=== PATIENT | male | born 1995 | race Caucasian/White ===

== ENCOUNTER → 2017-07-28 08:01 | Outpatient (CLI) | payer OTHER, MEDICAID, SELFPAY | PROVIDERS: Family Provider Internal Medicine; PCP Internal Medicine; Visit Provider Internal Medicine | DX: I95.9 Hypotension, unspecified (principal) | CPT/HCPCS: 36415; 82533 ==

== ENCOUNTER 2017-08-10 08:30 | Outpatient (RCR) | payer OTHER, MEDICAID, SELFPAY | END 2017-08-10 08:31 | LOC: NS 08:30 | PROVIDERS: Family Provider Internal Medicine; PCP Internal Medicine; Visit Provider Internal Medicine | DX: E46 Unspecified protein-calorie malnutrition (principal); Z71.3 Dietary counseling and surveillance | CPT/HCPCS: 97802 ==

== ENCOUNTER → 2018-01-01 13:00 | Outpatient (CLI) | payer OTHER, MEDICAID, SELFPAY ==
--- NOTE | 2018-01-01 13:08 | ECHOD_ITS ---
Reason For Study: VSD Procedure This was a 2D Doppler, Color Flow transthoracic echocardiogram. Exam performed in department. Left Ventricle Normal LV size. Left ventricular systolic function is normal. The estimated ejection fraction is 55 %. No evidence for diastolic dysfunction. No regional wall motion abnormalities noted. Right Ventricle Normal RV size. Normal systolic function. Atria Normal left atrium. Normal right atrium. Mitral Valve Normal mitral valve. Tricuspid Valve Normal tricuspid valve. Mild tricuspid valve insufficiency. Aortic Valve The aortic valve is not well visualized. Pulmonic Valve The pulmonic valve is not well visualized. Great Vessels Normal aortic root. The pulmonary artery is normal size. Pericardium/Pleural No pericardial effusion. MMode/2D Measurements & Calculations LVIDd: 3.7 cm IVSd: 0.79 cm Ao root diam: 2.6 cm LVIDs: 2.5 cm LVPWd: 0.87 cm FS: 32.1 % LAV(MOD-bp): 11.5 ml LA A4 area: 7.2 cm2 LAV(MOD-bp) Indexed: 7.2 ml/m2 LAV(MOD-sp2): 11.2 ml LAV(MOD-sp4): 11.8 ml Doppler Measurements & Calculations MV E max troy: 108.9 cm/sec Lat Peak E' Troy: 13.4 cm/sec Med Peak E' Troy: 7.0 cm/sec MV A max troy: 71.2 cm/sec E/E' lat: 8.2 E/E' med: 15.6 MV E/A: 1.5 Ao V2 max: 92.7 cm/sec LV V1 max: 80.0 cm/sec PA V2 max: 104.8 cm/sec Ao max P.4 mmHg LV V1 max P.6 mmHg TR max troy: 215.7 cm/sec TR max P.6 mmHg Interpretation Summary Normal LV size. Left ventricular systolic function is normal. The estimated ejection fraction is 55 %. No evidence for diastolic dysfunction. Mild tricuspid valve insufficiency. Ordering Physician: Kevon Fuentes Referring Physician: Augustina Burns MD Performed By: Keily Wagner, ALEJO, RVT
== END ==
PROVIDERS: Family Provider Internal Medicine; PCP Internal Medicine; Visit Provider Internal Medicine Cardiovascular Disease
DX: Z87.74 Personal history of (corrected) congenital malformations of heart and circulatory system (principal)
CPT/HCPCS: 93306

== ENCOUNTER 2018-04-23 09:01 | Outpatient (CLI) | payer OTHER, MEDICAID, SELFPAY ==
[2018-04-23] VITALS (9 sets, daily range): BP systolic 75–124; BP diastolic 32–93; PULSE 50–85; RESP 17–20; TEMP 36.1–36.8; O2SAT 78–100; BMI 24.8
--- NOTE | 2018-04-23 09:24 | CT_ITS ---
STUDY: CT ABDOMEN AND PELVIS WITH CONTRAST REASON FOR EXAM: Male, 23 years old. Mid abdominal pain. The patient is nonverbal. History of Hodgkin's lymphoma and prior chemotherapy. RADIATION DOSAGE (If Supplied By Facility): CTDIvol = ( 12.51 ) mGy, DLP = ( 830.93 ) mGycm TECHNIQUE: Transaxial images were obtained from the dome of the diaphragm to the symphysis pubis with oral contrast. 75mL ml of Isovue 300 contrast was administered. Sagittal and coronal images were reconstructed. Delayed imaging was obtained as well. Individualized dose optimization techniques were used for this CT. COMPARISON: None. FINDINGS: The visualized lung bases are unremarkable. The visualized portions of the heart are within normal limits. Normal liver. Normal gallbladder and extrahepatic biliary system. Normal spleen. Normal pancreas. Normal bilateral adrenal glands. Normal right kidney. Normal left kidney. Normal visualized stomach. Normal small intestine. Moderate amount of fecal material is seen in the colon. The appendix is visualized and appears normal. Normal abdominal aorta. Normal inferior vena cava. Normal retroperitoneum. Diffuse bladder wall thickening. Small benign-appearing bilateral inguinal lymph nodes. Normal abdominal wall. Normal osseous structures. CT/Abdomen/Pelvis WITH Contrast IMPRESSION: Diffuse bilateral wall thickening. Electronically Signed: Lawrence Ferro MD at 14:54 EDT Tel [phone], Service support ,
[2018-04-23 10:11] LABS: Creatinine, Serum 1.44 mg/dL (0.70-1.30); EST Glomerular Filtration Rate 64 mL/min (>60); Est Glom Filt Rate - Afr Amer 77 mL/min (>60); Estimated Creatinine Clearance 61.09 ml/min
--- NOTE | 2018-04-23 11:12 | NURSING ---
Addendum entered by Lory Stanford 04/23/18 11:12: PT TRANSPORTED TO PACU BY DR Jackson. MOTHER AND THIS RN FOLLOWING. BEDSIDE REPORT GIVEN TO GIANFRANCO SAENZ RN. DENIES ADDITIONAL NEEDS. Original Note: [id number]
== END 2018-04-23 11:47 | disposition home or self-care (01) ==
PROVIDERS: Anesthesiology; Family Provider Internal Medicine; PCP Internal Medicine; Referring Provider Internal Medicine Gastroenterology; Visit Provider Internal Medicine Gastroenterology
PROC: 3E0T3BZ Introduction of Anesthetic Agent into Peripheral Nerves and Plexi, Percutaneous Approach (ICD-10-PCS; principal; 2018-04-23 09:30)
DX: Z01.812 Encounter for preprocedural laboratory examination (principal); R10.9 Unspecified abdominal pain
CPT/HCPCS: 01922; 74177; 82565; J7120; Q9967; A4216

== ENCOUNTER 2021-01-20 18:47 | Emergency (ER) | payer MEDICAID, SELFPAY ==
[2019-12-22 16:12] VITALS: BMI 24.8
[2021-01-20 18:49] VITALS: BP 128/87; PULSE 79; RESP 14; TEMP 37.2; O2SAT 95; BMI 24.3
--- NOTE | 2021-01-20 19:17 | EDS_ITS ---
HPI History of Present Illness Chief Complaint: Foreign Body Informant: mental health staff Narrative Narrative: Patient is in a penit[facility]iary. He evidently is not supposed to eat roast. He was eating roast. He choked on it. He was having some trouble breathing. However, when he got here he was able to cough up that piece of roast. He is now back to baseline. He feels and is acting normally per his care provider. He was fine before this. He is back to normal now. Coughing up made it better. [facility] Medical History (Updated 01/20/21 @ 20:[address] 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 Right bundle branch block (RBBB) Seasonal allergies Syncope and collapse Syncope due to orthostatic hypotension Trisomy 21 Ventricular septal defect Vision problems Home Medications levothyroxine 88 mcg PO DAILY 04/03/13 [History Last Taken Unknown] polyethylene glycol 3350 17 gm PO DAILY 04/03/13 [History Last Taken Unknown] testosterone 2.5 gm TD DAILY 04/03/13 [History Last Taken Unknown] calcium polycarbophil 2 tab PO DAILY 11/25/16 [History Last Taken Unknown] cholecalciferol (vitamin D3) 1,000 unit PO DAILY 11/25/16 [History Last Taken Unknown] melatonin 5 mg PO QHS 11/25/16 [History Last Taken Unknown] mirtazapine 45 mg PO QHS 11/25/16 [History Last Taken Unknown] pediatric vqhlnpsh-pngw-ydk 1 ea PO DAILY 11/25/16 [History Last Taken Unknown] omeprazole 20 mg PO DAILY #30 cap 02/14/17 [Rx Last Taken Unknown] calcium carbonate 500 mg calcium (1,250 mg) chewable tablet 500 mg PO BID tab 07/27/17 [History Last Taken Unknown] ceramides 1,3,6-II 1 ea TOPICAL DAILY 07/27/17 [History Last Taken Unknown] cetirizine 10 mg tablet 10 mg PO QDAY 07/27/17 [History Last Taken Unknown] fluocinolone 0.01 % scalp oil and shower cap 1 % TOPICAL MOWEFR 07/27/17 [History Last Taken Unknown] guaifenesin 400 mg tablet 400 mg PO Q4H PRN 07/27/17 [History Last Taken Unknown] sodium chloride 0.65 % nasal spray aerosol 2 spray INTRANASAL BID ml 07/27/17 [History Last Taken Unknown] Lactobacillus rhamnosus GG 10 billion cell capsule 1 cap PO BID #60 cap 01/05/18 [Rx Last Taken Unknown] risperidone 0.5 mg tablet 0.5 mg PO BID tab 01/25/18 [History Last Taken Unknown] risperidone 1 mg tablet 1 mg PO QHS tab 01/25/18 [History Last Taken Unknown] fluticasone propionate 50 mcg/actuation nasal spray,suspension 1 spray INTRANASAL DAILY #47.4 g 03/12/18 [Rx Last Taken Unknown] azelaic acid 20 % topical cream 1 applic TOPICAL BID #30 g 04/21/18 [Rx Last Taken Unknown] cephalexin 500 mg capsule 500 mg PO TID #30 cap 12/22/19 [Rx Last Taken Unknown] Allergy/AdvReac Type Severity Reaction Status Date / Time gluten AdvReac Upset Verified 12/22/19 16:10 Stomach Family History Mother Anxiety Thyroid disorder Uncle Anxiety Grandmother Depression High cholesterol Sister Epilepsy Grandfather Thyroid disorder Surgical History H/O ventricular septal defect repair History of sinus surgery History of tonsillectomy and adenoidectomy lymphctomy/bone marrow aspiration Social History (Updated 12/22/19 @ 16:45 by Ori BAXTER, PA) Smoking Status: Never smoker alcohol intake: never substance use type: does not use what type of physical activity do you participate in: none ROS ROS ED ROS Narrative Review of systems is limited because of the patient's chronic mental condition. But per staff, he it was totally normal prior to this. Review of Systems ROS Unobtainable: due to mental condition EXAM Physical Exam Const Vital Signs: 01/20/21 18:49 Temperature 99 F Temperature Source Temporal Pulse Rate 79 Respiratory Rate 14 Blood Pressure 128/87 H Blood Pressure Mean 100 Pulse Ox 95 Oxygen Delivery Method Room Air Positive well nourished and well developed General Appearance ED: well developed and NAD HEENT HEENT Narrative: Breathing normally. No foreign body at this time. He did bring up a piece. Negative for trauma or tenderness Neck no lymphadenopathy and supple Chest Wall Negative for inspection of chest normal Resp normal respiratory effort and clear to auscultation bilaterally Cardio regular rate GI normal to inspection, nondistended, normoactive bowel sounds Palpation: soft Back/Spine no CVA tenderness Neuro Sensorium / Orientation: alert Psych mental status grossly normal Skin no rashes or lesions noted MDM MDM MDM Narrative Medical decision making narrative: X-ray shows no acute process. Patient is rechecked. He is asymptomatic. His saturations are 97%. I think he is okay to go back to his penitentiary. Radiography Diagnostic Testing: Radiology Impression Chest X-Ray 01/20/21 19:30 IMPRESSION: No radiographic evidence of acute cardiopulmonary disease. at 2013 Reported and signed by: Scott Stephens MD Electronically Signed: Scott Stephens MD at 20:12 EDT Tel , Service support , Discharge Plan Triage Chief Complaint: Foreign Body ED Provider: Juan Odell Dx/Rx/DC Orders Clinical Impression: Choking episode Instructions: ED Choking Spell (Adult) Prescriptions: No Action cetirizine [All Day Allergy (cetirizine)] 10 mg tablet 10 mg PO QDAY RF: 0 fluocinolone and shower cap 0.01 % oil 1 % TOPICAL MOWEFR RF: 0 sodium chloride 0.65 % aerosol,spray 2 spray INTRANASAL BID RF: 0 ceramides 1,3,6-II [CeraVe] lotion 1 ea TOPICAL DAILY RF: 0 guaifenesin 400 mg tablet 400 mg PO Q4H PRN (Reason: Cough) RF: 0 calcium carbonate 500 mg calcium (1,250 mg) tablet,chewable 500 mg PO BID RF: 0 cephalexin 500 mg capsule 500 mg PO TID Qty: 30 RF: 0 polyethylene glycol 3350 17 GM packet 17 gm PO DAILY RF: 0 levothyroxine 88 MCG tablet 88 mcg PO DAILY RF: 0 testosterone 2.5 GM gel in packet 2.5 gm TD DAILY RF: 0 risperidone 0.5 mg tablet 0.5 mg PO BID RF: 0 risperidone 1 mg tablet 1 mg PO QHS RF: 0 pediatric pnqqbyja-fulo-bek 1 EACH tablet,chewable 1 ea PO DAILY RF: 0 calcium polycarbophil 625 MG tablet 2 tab PO DAILY RF: 0 mirtazapine 45 MG tablet 45 mg PO QHS RF: 0 cholecalciferol (vitamin D3) 1,000 UNIT capsule 1,000 unit PO DAILY RF: 0 melatonin 5 MG tablet 5 mg PO QHS RF: 0 omeprazole 20 MG capsule 20 mg PO DAILY Qty: 30 RF: 0 Lactobacillus rhamnosus GG [Culturelle] 10 billion cell capsule 1 cap PO BID Qty: 60 RF: 2 fluticasone propionate 50 mcg/actuation spray,suspension 1 spray INTRANASAL DAILY Qty: 47.4 RF: 1 Azelex 20 % cream 1 applic TOPICAL BID Qty: 30 RF: 0 Primary Care Provider: Honey Molina Referrals: Honey Molina MD [Primary Care Provider] - 3-5 Days if not improving Disposition Disposition: Home, Self Care
--- NOTE | 2021-01-20 19:30 | RAD_ITS ---
EXAM: XR CHEST, 1 VIEW : 1995 CLINICAL INDICATION: cough TECHNIQUE: Frontal view of the chest. This report was created using [employer] report generation technology. COMPARISON: 04/06/2017 FINDINGS: LUNGS AND PLEURAL SPACES: Unremarkable. No consolidation or edema. No pneumothorax. No effusion. HEART: Unremarkable. Cardiac silhouette not enlarged. MEDIASTINUM: Central airways and mediastinal contour are unremarkable. BONES/JOINTS: Unremarkable. SOFT TISSUES: Unremarkable. RAD/Chest 1 View (Portable) IMPRESSION: No radiographic evidence of acute cardiopulmonary disease. at 2013 Reported and signed by: Scott Stephens MD Electronically Signed: Scott Stephens MD at 20:12 EDT Tel , Service support ,
[2021-01-20 20:40] VITALS: BP 109/75; PULSE 70; RESP 17; O2SAT 95
== END 2021-01-20 20:41 | disposition home or self-care (01) ==
PROVIDERS: Emergency Provider Emergency Medicine; PCP Internal Medicine
DX: T17.928A Food in respiratory tract, part unspecified causing other injury, initial encounter (principal); Q90.9 Down syndrome, unspecified; K21.9 Gastro-esophageal reflux disease without esophagitis; E03.9 Hypothyroidism, unspecified; Z79.899 Other long term (current) drug therapy
CPT/HCPCS: 71045; 99282

== ENCOUNTER 2021-06-25 10:21 | Emergency (ER) | payer MEDICAID, SELFPAY ==
[2021-06-25 10:22] VITALS: BP 125/66; PULSE 82; RESP 17; TEMP 37.2; O2SAT 95; BMI 25.7
[2021-06-25 10:26] VITALS: BP 125/66; PULSE 82; RESP 17; TEMP 37.2; O2SAT 95
[2021-06-25 11:34] VITALS: BP 125/66; PULSE 82; RESP 17; TEMP 37.2; O2SAT 95
--- NOTE | 2021-06-25 11:39 | CT_ITS ---
STUDY: CTA CHEST REASON FOR EXAM: Male, 26 years old. covid 19 pulmonary embolism RADIATION DOSAGE (If Supplied By Facility): CTDIvol = ( 4.34 ) mGy, DLP = ( 244.74 ) mGycm TECHNIQUE: The examination was performed with the intravenous administration of IV 100mL Isovue-370. Post-processing of the angiographic images was performed, with multiplanar reformation and 3D reconstruction. Individualized dose optimization techniques were used for this CT. COMPARISON: None. FINDINGS: Normal enhancement of the main pulmonary artery and right and left pulmonary arteries. Normal enhancement of the bilateral peripheral pulmonary arteries. There is no demonstrated pulmonary embolism. Normal thoracic aorta and visualized great vessels. There is no demonstrated aortic dissection. Normal heart and pericardium. Normal mediastinum. Normal hilar regions. Normal visualized trachea and bronchi. The lungs are under expanded. Mild mosaic attenuation in the dependent portions of bilateral lower lobes. No dense airspace consolidation. Normal pleura. Normal chest wall structures. Normal osseous structures. Normal visualized upper abdomen. CT/CTA Chest W/WO Contrast IMPRESSION: 1. No central or segmental pulmonary embolism. 2. Bilateral lower lobe air trapping versus pneumonitis. Electronically Signed: Natan Rodriguez MD ([place]) at 13:00 EST , Service support ,
--- NOTE | 2021-06-25 11:44 | EDS_ITS ---
HPI History of Present Illness Chief Complaint: Fever Informant: parent Narrative Narrative: 26-year-old male with a history of Down's syndrome presenting to the emergency department with COVID-19 and fever. Patient was tested yesterday and developed symptoms yesterday. He has had continued fever. He ate normally today. There is concerns that his pulse ox was low this morning. Patient is not Covid vaccinated. No reports of diarrhea. Cough has been mild PFSH PFSH Medical History (Updated 06/25/21 @ 11:[address] 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 Right bundle branch block (RBBB) Seasonal allergies Syncope and collapse Syncope due to orthostatic hypotension Trisomy 21 Ventricular septal defect Vision problems Home Medications levothyroxine 88 mcg PO DAILY 04/03/13 [History Last Taken Unknown] polyethylene glycol 3350 17 gm PO DAILY 04/03/13 [History Last Taken Unknown] testosterone 2.5 gm TD DAILY 04/03/13 [History Last Taken Unknown] calcium polycarbophil 2 tab PO DAILY 11/25/16 [History Last Taken Unknown] cholecalciferol (vitamin D3) 1,000 unit PO DAILY 11/25/16 [History Last Taken Unknown] melatonin 5 mg PO QHS 11/25/16 [History Last Taken Unknown] mirtazapine 45 mg PO QHS 11/25/16 [History Last Taken Unknown] pediatric ghaqhcxj-yuuo-osr 1 ea PO DAILY 11/25/16 [History Last Taken Unknown] omeprazole 20 mg PO DAILY #30 cap 02/14/17 [Rx Last Taken Unknown] calcium carbonate 500 mg calcium (1,250 mg) chewable tablet 500 mg PO BID tab 07/27/17 [History Last Taken Unknown] ceramides 1,3,6-II 1 ea TOPICAL DAILY 07/27/17 [History Last Taken Unknown] cetirizine 10 mg tablet 10 mg PO QDAY 07/27/17 [History Last Taken Unknown] fluocinolone 0.01 % scalp oil and shower cap 1 % TOPICAL MOWEFR 07/27/17 [History Last Taken Unknown] guaifenesin 400 mg tablet 400 mg PO Q4H PRN 07/27/17 [History Last Taken Unknown] sodium chloride 0.65 % nasal spray aerosol 2 spray INTRANASAL BID ml 07/27/17 [History Last Taken Unknown] Lactobacillus rhamnosus GG 10 billion cell capsule 1 cap PO BID #60 cap 01/05/18 [Rx Last Taken Unknown] risperidone 0.5 mg tablet 0.5 mg PO BID tab 01/25/18 [History Last Taken Unknown] risperidone 1 mg tablet 1 mg PO QHS tab 01/25/18 [History Last Taken Unknown] fluticasone propionate 50 mcg/actuation nasal spray,suspension 1 spray INTRANASAL DAILY #47.4 g 03/12/18 [Rx Last Taken Unknown] azelaic acid 20 % topical cream 1 applic TOPICAL BID #30 g 04/21/18 [Rx Last Taken Unknown] cephalexin 500 mg capsule 500 mg PO TID #30 cap 12/22/19 [Rx Last Taken Unknown] ondansetron 4 mg PO Q6H PRN PRN #15 tab 06/25/21 [Rx Last Taken Unknown] sulfacetamide sodium 2 drp EACH EYE Q4H 7 Days #15 ml 06/25/21 [Rx Last Taken Unknown] Allergy/AdvReac Type Severity Reaction Status Date / Time gluten AdvReac Upset Verified 06/25/21 10:28 Stomach Family History Mother Anxiety Thyroid disorder Uncle Anxiety Grandmother Depression High cholesterol Sister Epilepsy Grandfather Thyroid disorder Surgical History H/O ventricular septal defect repair History of sinus surgery History of tonsillectomy and adenoidectomy lymphctomy/bone marrow aspiration Social History Smoking Status: Never smoker alcohol intake: never substance use type: does not use what type of physical activity do you participate in: none ROS ROS ED Review of Systems ROS Unobtainable: due to mental status Constitutional Constitutional ED: Reports fever(s) Eyes Eyes: Reports other Details: Bilateral conjunctival exudate and injection Respiratory/Chest Respiratory/Chest: Reports cough EXAM Physical Exam Const Vital Signs: 06/25/21 10:22 06/25/21 10:26 06/25/21 11:34 Temperature 98.9 F 98.9 F 98.9 F Temperature Source Oral Oral Oral Pulse Rate 82 82 82 Respiratory Rate 17 17 17 Blood Pressure 125/66 H 125/66 H 125/66 H Blood Pressure Mean 85 85 85 Pulse Ox 95 95 95 Oxygen Delivery Method Room Air Room Air Room Air 06/25/21 13:31 Temperature Temperature Source Pulse Rate 62 Respiratory Rate 16 Blood Pressure 114/70 Blood Pressure Mean 84 Pulse Ox 97 Oxygen Delivery Method Room Air Positive well nourished and well developed General Appearance ED: well developed HEENT Reports normocephalic, head/scalp atraumatic and dry mucous membranes Mouth ED: Yes dry mucous membranes Mouth: dry mucous membranes Eyes PERRL and EOMs intact bilaterally Eyes Narrative: Bilateral conjunctival injection with exudates Neck no lymphadenopathy, supple and no JVD Resp normal respiratory effort and clear to auscultation bilaterally Cardio regular rate, regular rhythm and no murmurs GI normal to inspection, nondistended, normoactive bowel sounds and non-tender Palpation: soft Back/Spine no CVA tenderness and normal ROM Extremity normal to inspection General Extremety ED: Negative for edema General Extremity: Negative for edema Neuro CN's II-XII intact bilaterally Sensorium / Orientation: alert Motor Exam: strength 5/5 throughout Psych mental status grossly normal Mood & Affect: Negative for depressed or tearful MDM MDM MDM Narrative Medical decision making narrative: Patient received Tylenol and IV fluids. Sulfacetamide drops were placed for the eye. Basic blood work showed a mild leukopenia at 4 with a platelet count of 116. Lactic acid is normal 1.5 creatinine 1.44. CTA of the chest was obtained which does not demonstrate any pulmonary embolism. At this point the patient is not requiring supplemental oxygen. Mom is not sure if she wants him to have monoclonal antibody treatment. Lab Data Labs: Laboratory Results - last 24 hr 06/25/21 06/25/21 06/25/21 12:00 12:00 12:00 WBC 4.0 L RBC 4.42 L Hgb 14.8 Hct 43.4 MCV 98.2 H MCH 33.5 H MCHC 34.1 RDW Std Deviation 49.7 H RDW Coeff of Reyes 13.5 Plt Count 116 L MPV 10.0 Immature Gran % (Auto) 0.500 Neut % (Auto) 41.8 L Lymph % (Auto) 36.1 [place] % (Auto) 21.1 H Eos % (Auto) 0.0 Baso % (Auto) 0.5 Absolute Neuts (auto) 1.7 L Absolute Lymphs (auto) 1.45 Nucleated RBC % 0 Sodium 144 Potassium 3.9 Chloride 105 Carbon Dioxide 32.0 Anion Gap 7 BUN 14 Creatinine 1.44 H Estim Creat Clear Calc 59.51 Est GFR (MDRD) Af Amer 76 Est GFR (MDRD) Non-Af 62 BUN/Creatinine Ratio 9.7 L Glucose 99 Lactic Acid 1.5 Calcium 9.0 Total Bilirubin 0.30 AST 48 H ALT 59 Alkaline Phosphatase 79 Total Protein 6.8 Albumin 3.0 L Globulin 3.8 Albumin/Globulin Ratio 0.8 L Radiography Diagnostic Testing: Clinical Impression(s) from Imaging Studies Chest CTA 06/25/21 11:39 IMPRESSION: 1. No central or segmental pulmonary embolism. 2. Bilateral lower lobe air trapping versus pneumonitis. Electronically Signed: Natan Rodriguez MD ([place]) at 13:00 EST , Service support , Discharge Plan Triage Chief Complaint: Fever ED Provider: Elijah Bello Dx/Rx/DC Orders Clinical Impression: COVID-19, Conjunctivitis Instructions: Coronavirus Disease 2019 (COVID-19): Caring for Yourself or Others, ED Conjunctivitis, Nonspecific Prescriptions: New sulfacetamide sodium 10 % drops 2 drp EACH EYE Q4H 7 Days Qty: 15 RF: 0 ondansetron [ondansetron] 4 MG tablet 4 mg PO Q6H PRN PRN (Reason: Nausea) Qty: 15 RF: 0 No Action cetirizine [All Day Allergy (cetirizine)] 10 mg tablet 10 mg PO QDAY RF: 0 fluocinolone and shower cap 0.01 % oil 1 % TOPICAL MOWEFR RF: 0 sodium chloride 0.65 % aerosol,spray 2 spray INTRANASAL BID RF: 0 ceramides 1,3,6-II [CeraVe] lotion 1 ea TOPICAL DAILY RF: 0 guaifenesin 400 mg tablet 400 mg PO Q4H PRN (Reason: Cough) RF: 0 calcium carbonate 500 mg calcium (1,250 mg) tablet,chewable 500 mg PO BID RF: 0 cephalexin 500 mg capsule 500 mg PO TID Qty: 30 RF: 0 polyethylene glycol 3350 17 GM packet 17 gm PO DAILY RF: 0 levothyroxine 88 MCG tablet 88 mcg PO DAILY RF: 0 testosterone 2.5 GM gel in packet 2.5 gm TD DAILY RF: 0 risperidone 0.5 mg tablet 0.5 mg PO BID RF: 0 risperidone 1 mg tablet 1 mg PO QHS RF: 0 pediatric nrugnweh-itmb-dlr 1 EACH tablet,chewable 1 ea PO DAILY RF: 0 calcium polycarbophil 625 MG tablet 2 tab PO DAILY RF: 0 mirtazapine 45 MG tablet 45 mg PO QHS RF: 0 cholecalciferol (vitamin D3) 1,000 UNIT capsule 1,000 unit PO DAILY RF: 0 melatonin 5 MG tablet 5 mg PO QHS RF: 0 omeprazole 20 MG capsule 20 mg PO DAILY Qty: 30 RF: 0 Lactobacillus rhamnosus GG [Culturelle] 10 billion cell capsule 1 cap PO BID Qty: 60 RF: 2 fluticasone propionate 50 mcg/actuation spray,suspension 1 spray INTRANASAL DAILY Qty: 47.4 RF: 1 Azelex 20 % cream 1 applic TOPICAL BID Qty: 30 RF: 0 Primary Care Provider: Honey Molina Referrals: Honey Molina MD [Primary Care Provider] - As Needed Disposition Disposition: Home, Self Care
[2021-06-25] MEDS: Acetaminophen 500 MG Tablet 1000 MG PO (12:16)
[2021-06-25 12:26] LABS: Absolute Lymphocyte Count 1.45 X10^3/uL (0.83-4.51); Absolute Neutrophil Count 1.7 X10^3/uL (2.0-7.7); Basophil# 0.02 X10^3/uL; Basophil% 0.5 % (0-1); Hematocrit 43.4 % (40-54); Hemoglobin 14.8 g/dL (13.0-16.5); Lymphocyte # 1.45 X10^3/ul (0.83-4.51); Lymphocyte % 36.1 % (19-41); Mean Corp Hgb Conc 34.1 g/dL (32-36); Mean Corpuscular Hgb 33.5 pg (27.0-32.0); Mean Corpuscular Volume 98.2 fL (80-94); Monocyte# 0.85 X10^3/uL; Monocyte% 21.1 % (0-10); NRBC Flagged by Analyzer 0 % (0-5); Neutrophil # 1.68 X10^3/uL (2.7-7.7); Neutrophil % 41.8 % (47-70); Platelet Count 116 K/mm3 (150-450); RBC Distribution Width CV 13.5 % (11.6-14.6); RBC Distribution Width SD 49.7 fl (35.1-43.9); Red Blood Count 4.42 M/mm3 (4.6-6.2)
[2021-06-25 12:28] LABS: ALB/GLOB Ratio 0.8 RATIO (0.9-2.4); AST(SGOT) 48 U/L (15-37); Alanine Aminotransfer ALT/SGPT 59 U/L (16-61); Alkaline Phosphatase 79 U/L (45-117); Anion Gap 7 (5-15); BUN 14 mg/dL (7-18); BUN/Creat Ratio 9.7 RATIO (10-20); Chloride 105 mmol/L (98-107); Creatinine, Serum 1.44 mg/dL (0.70-1.30); EST Glomerular Filtration Rate 62 mL/min (>60); Est Glom Filt Rate - Afr Amer 76 mL/min (>60); Estimated Creatinine Clearance 59.51 ml/min; Globulin 3.8 g/dL (2.2-4.2); Glucose 99 mg/dL (74-106); Potassium 3.9 mmol/L (3.5-5.1); Protein, Total 6.8 g/dL (6.4-8.2); Sodium Level 144 mmol/L (136-145)
[2021-06-25 12:32] LABS: Lactic Acid 1.5 mmol/L (0.4-1.9)
[2021-06-25] MEDS: Sulfacetamide Sodium 15ML OPTH.BTL 2 DRP OPHTHALMIC (12:41)
[2021-06-25 13:31] VITALS: BP 114/70; PULSE 62; RESP 16; O2SAT 97
[2021-06-25 14:59] VITALS: BP 110/74; PULSE 87; RESP 16; O2SAT 99
== END 2021-06-25 15:11 | disposition home or self-care (01) ==
PROVIDERS: Emergency Provider Emergency Medicine; PCP Internal Medicine
DX: U07.1 COVID-19 (principal); H10.9 Unspecified conjunctivitis; Q90.9 Down syndrome, unspecified; E03.9 Hypothyroidism, unspecified; K21.9 Gastro-esophageal reflux disease without esophagitis; Z79.890 Hormone replacement therapy; Z79.899 Other long term (current) drug therapy; Z87.74 Personal history of (corrected) congenital malformations of heart and circulatory system
CPT/HCPCS: 71275; 80053; 83605; 85025; 96360; 96361; 99285; J7030; Q9967

== ENCOUNTER 2022-03-01 11:57 | Emergency (ER) | payer MEDICAID, SELFPAY ==
[2022-03-01 11:58] VITALS: BP 116/71; PULSE 89; RESP 16; TEMP 36.2; O2SAT 100; BMI 25.8
--- NOTE | 2022-03-01 12:06 | RAD_ITS ---
STUDY: X-RAY CHEST REASON FOR EXAM: Male, 27 years old. Choking episode TECHNIQUE: Single AP portable view of the chest. COMPARISON: 01/20/2021. FINDINGS: Hypoventilatory changes. Vague opacity in the right upper lobe could represent early infiltrate. There is no demonstrated pleural abnormality. Normal size heart. Surgical clips overlying the mediastinum. Normal visualized pulmonary arteries. Normal visualized aortic arch and descending thoracic aorta. Normal visualized thoracic spine. Normal visualized ribs, clavicles, and shoulders. There is no demonstrated abnormality of the visualized soft tissue structures of the upper abdomen. RAD/Chest 1 View (Portable) IMPRESSION: Vague opacity/early infiltrate in the right upper lobe. Electronically Signed: Shiva Torres MD at 12:38 EDT ,
--- NOTE | 2022-03-01 12:07 | EDS_ITS ---
HPI History of Present Illness Chief Complaint: Foreign Body Informant: EMS and SNF Narrative Narrative: 7-year-old male with a history of Down syndrome was eating lunch when he began to choke on chicken. Staff attempted to get the chicken cleared was unsuccessfu l so EMS was called. EMS states that they were working on clearing the obstruction and when he leaned forward the chicken came out. They state that he is now been acting appropriately. He has been able to drink water without any issues. [facility] Medical History (Updated 03/01/22 @ 12:[address] 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 Right bundle branch block (RBBB) Seasonal allergies Syncope and collapse Syncope due to orthostatic hypotension Trisomy 21 Ventricular septal defect Vision problems Home Medications levothyroxine 88 mcg tablet 88 mcg PO DAILY 04/03/13 [History Last Taken Unknown] polyethylene glycol 3350 17 gram oral powder packet 17 gm PO DAILY 04/03/13 [History Last Taken Unknown] testosterone 1 % (25 mg/2.5 gram) transdermal gel packet 2.5 gm TD DAILY 04/03/13 [History Last Taken Unknown] cholecalciferol (vitamin D3) 25 mcg (1,000 unit) capsule 1,000 unit PO DAILY 11/25/16 [History Last Taken Unknown] melatonin 5 mg tablet 5 mg PO QHS 11/25/16 [History Last Taken Unknown] mirtazapine 45 mg tablet 45 mg PO QHS 11/25/16 [History Last Taken Unknown] pediatric tfbehaxm-alnb-[id number] 1 ea PO DAILY 11/25/16 [History Last Taken Unknown] calcium carbonate 500 mg calcium (1,250 mg) chewable tablet 500 mg PO BID 07/27/17 [History Last Taken Unknown] ceramides 1,3,6-II (CeraVe lotion) 1 ea topical DAILY 07/27/17 [History Last Taken Unknown] cetirizine 10 mg tablet (All Day Allergy (cetirizine)) 10 mg PO QDAY 07/27/17 [History Last Taken Unknown] fluocinolone 0.01 % scalp oil and shower cap 1 % topical MOWEFR 07/27/17 [History Last Taken Unknown] guaifenesin 400 mg tablet 400 mg PO Q4H PRN Cough 07/27/17 [History Last Taken Unknown] sodium chloride 0.65 % nasal spray aerosol 2 spray intranasal BID 07/27/17 [History Last Taken Unknown] Lactobacillus rhamnosus GG 10 billion cell capsule (Culturelle) 1 cap PO BID #60 caps 01/05/18 [Rx Last Taken Unknown] risperidone 0.5 mg tablet 0.5 mg PO BID 01/25/18 [History Last Taken Unknown] risperidone 1 mg tablet 1 mg PO QHS 01/25/18 [History Last Taken Unknown] fluticasone propionate 50 mcg/actuation nasal spray,suspension 1 spray intranasal DAILY #47.4 grams 03/12/18 [Rx Last Taken Unknown] azelaic acid 20 % topical cream (Azelex) 1 applic topical BID #30 grams 04/21/18 [Rx Last Taken Unknown] calcium polycarbophil 625 mg tablet (Fiber Laxative (calcium polycarbophil)) 625 mg PO DAILY 03/01/22 [History Last Taken Unknown] divalproex 500 mg tablet,extended release 24 hr 500 mg PO BID 03/01/22 [History Last Taken Unknown] doxycycline hyclate 50 mg tablet 50 mg PO DAILY 03/01/22 [History Last Taken Unknown] lansoprazole 15 mg capsule,delayed release 15 mg PO DAILY 03/01/22 [History Last Taken Unknown] tamsulosin 0.4 mg capsule 0.4 mg PO QHS 03/01/22 [History Last Taken Unknown] Allergy/AdvReac Type Severity Reaction Status Date / Time gluten AdvReac Upset Verified 03/01/22 12:02 Stomach Family History Mother Anxiety Thyroid disorder Uncle Anxiety Grandmother Depression High cholesterol Sister Epilepsy Grandfather Thyroid disorder Surgical History H/O ventricular septal defect repair History of sinus surgery History of tonsillectomy and adenoidectomy lymphctomy/bone marrow aspiration Social History Smoking Status: Never smoker alcohol intake: never substance use type: does not use what type of physical activity do you participate in: none ROS ROS ED Constitutional Constitutional ED: Denies chills or weight loss Eyes Eyes: Denies change in vision or diplopia ENT ENT ED: Denies ear pain, rhinorrhea or sore throat Cardiovascular Cardiovascular: Denies chest pain, orthopnea, palpitations or racing heartbeat Respiratory/Chest Respiratory/Chest: Denies cough, dyspnea or orthopnea Gastrointestinal Gastrointestinal: Denies abdominal pain, diarrhea, nausea or vomiting Genitourinary Genitourinary ED: Denies dysuria, hematuria or urinary frequency Musculoskeletal Musculoskeletal: Denies arthralgias or myalgias Integumentary Denies abscess or rash Neurologic Neurologic: Denies headache(s) or weakness Psychiatric Psychiatric: Denies anxiety, depression, suicidal ideation or suicidal thoughts Endocrine Endocrinology: Denies polydipsia, polyphagia or polyuria Allergic/Immunologic Allergic/Immunologic ED: Denies mouth swelling, tongue swelling or urticaria EXAM Physical Exam Const Vital Signs: 03/01/22 11:58 Temperature 97.1 F L Temperature Source Oral Pulse Rate 89 Respiratory Rate 16 Blood Pressure 116/71 Blood Pressure Mean 86 Pulse Ox 100 Oxygen Delivery Method Room Air Positive well nourished and well developed General Appearance ED: well developed HEENT Reports normocephalic, head/scalp atraumatic and moist mucous membranes Eyes PERRL and EOMs intact bilaterally Neck no lymphadenopathy, supple and no JVD Resp normal respiratory effort and clear to auscultation bilaterally Cardio regular rate, regular rhythm and no murmurs GI normal to inspection, nondistended, normoactive bowel sounds and non-tender Palpation: soft Back/Spine no CVA tenderness and normal ROM Extremity normal to inspection General Extremety ED: Negative for edema General Extremity: Negative for edema Neuro oriented x3 and CN's II-XII intact bilaterally Sensorium / Orientation: alert Motor Exam: strength 5/5 throughout Psych mental status grossly normal Mood & Affect: Negative for depressed or tearful Skin no rashes or lesions noted and no wounds MDM MDM MDM Narrative Medical decision making narrative: 1 view chest x-ray was obtained. I do not see any evidence of aspiration at this time. He is drinking water and his vital signs appear stable. Patient to be discharged Discharge Plan Triage Chief Complaint: Foreign Body ED Provider: Elijah Bello Dx/Rx/DC Orders Clinical Impression: Trisomy 21, Choking episode Instructions: ED Pharyngeal Foreign Body, Removed Prescriptions: No Action cetirizine [All Day Allergy (cetirizine)] 10 mg tablet 10 mg PO QDAY fluocinolone and shower cap 0.01 % oil 1 % TOPICAL MOWEFR Label Comments: 3 TIMES A WEEK sodium chloride 0.65 % aerosol,spray 2 spray INTRANASAL BID ceramides 1,3,6-II [CeraVe] lotion 1 ea TOPICAL DAILY guaifenesin 400 mg tablet 400 mg PO Q4H PRN (Reason: Cough) calcium carbonate 500 mg calcium (1,250 mg) tablet,chewable 500 mg PO BID polyethylene glycol 3350 17 GM packet 17 gm PO DAILY levothyroxine 88 MCG tablet 88 mcg PO DAILY testosterone 2.5 GM gel in packet 2.5 gm TD DAILY risperidone 0.5 mg tablet 0.5 mg PO BID risperidone 1 mg tablet 1 mg PO QHS pediatric mvffeien-jmak-pze 1 EACH tablet,chewable 1 ea PO DAILY mirtazapine 45 MG tablet 45 mg PO QHS cholecalciferol (vitamin D3) 1,000 UNIT capsule 1,000 unit PO DAILY melatonin 5 MG tablet 10 mg PO QHS tamsulosin 0.4 mg Capsule 0.4 mg PO QHS divalproex 500 mg Tablet Extended Release 24 Hr 500 mg PO BID calcium polycarbophil [Fiber Laxative (ca polycarbo)] 625 mg Tablet 625 mg PO DAILY lansoprazole 15 mg Capsule,Delayed Release(Dr/Ec) 15 mg PO DAILY doxycycline hyclate 50 mg Tablet 50 mg PO DAILY Lactobacillus rhamnosus GG [Culturelle] 10 billion cell capsule 1 cap PO BID Qty: 60 2RF Rx Instructions: give with food (meal/snack) fluticasone propionate 50 mcg/actuation spray,suspension 1 spray INTRANASAL DAILY Qty: 47.4 1RF Azelex 20 % cream 1 applic TOPICAL BID Qty: 30 0RF Primary Care Provider: Honey Molina Referrals: Honey Molina MD [Primary Care Provider] - As Needed Disposition Disposition: Home, Self Care
[2022-03-01 12:38] VITALS: PULSE 87; RESP 17; O2SAT 100
== END 2022-03-01 12:42 | disposition home or self-care (01) ==
PROVIDERS: Emergency Provider Emergency Medicine; PCP Internal Medicine; Visit Provider Emergency Medicine
DX: T17.928A Food in respiratory tract, part unspecified causing other injury, initial encounter (principal); Q90.9 Down syndrome, unspecified; E03.9 Hypothyroidism, unspecified; Z79.899 Other long term (current) drug therapy
CPT/HCPCS: 71045; 99284

== ENCOUNTER 2022-06-03 17:59 | Emergency (ER) | payer MEDICAID, SELFPAY ==
[2022-06-03 18:04] VITALS: BP 127/72; PULSE 77; RESP 15; TEMP 35.8; O2SAT 99; BMI 25.9
--- NOTE | 2022-06-03 18:21 | EDS_ITS ---
HPI <SAHIL Huerta - Last Filed: 06/03/22 21:43> History of Present Illness Chief Complaint: Foreign Body Narrative Narrative: Patient presents via EMS for an episode of choking that occurred while eating dinner this evening. Patient has a developmental disability and is unable to provide me with any information. One of the longterm workers is in the room with him and states she is unsure if the Heimlich was required or not or how long the episode lasted. She states this has happened in the past and that patient has to be directly observed while eating and told to chew his food to because he will just swallow it. Today, one of the workers was in the dining room with him, however, her back was turned and that is when the episode occurred. Patient does not appear to be in any acute distress. He is able to drink water in the room without difficulty. 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 Right bundle branch block (RBBB) Seasonal allergies Syncope and collapse Syncope due to orthostatic hypotension Trisomy 21 Ventricular septal defect Vision problems Home Medications levothyroxine 88 mcg tablet 88 mcg PO DAILY 04/03/13 [History Last Taken Unknown] polyethylene glycol 3350 17 gram oral powder packet 17 gm PO DAILY 04/03/13 [History Last Taken Unknown] testosterone 1 % (25 mg/2.5 gram) transdermal gel packet 2.5 gm TD DAILY 04/03/13 [History Last Taken Unknown] cholecalciferol (vitamin D3) 25 mcg (1,000 unit) capsule 1,000 unit PO DAILY 11/25/16 [History Last Taken Unknown] melatonin 5 mg tablet 10 mg PO QHS 11/25/16 [History Last Taken Unknown] mirtazapine 45 mg tablet 45 mg PO QHS 11/25/16 [History Last Taken Unknown] pediatric aodastbv-fnzo-hci 1 ea PO DAILY 11/25/16 [History Last Taken Unknown] calcium carbonate 500 mg calcium (1,250 mg) chewable tablet 500 mg PO BID 07/27/17 [History Last Taken Unknown] ceramides 1,3,6-II (CeraVe lotion) 1 ea topical DAILY 07/27/17 [History Last Taken Unknown] cetirizine 10 mg tablet (All Day Allergy (cetirizine)) 10 mg PO QDAY 07/27/17 [History Last Taken Unknown] fluocinolone 0.01 % scalp oil and shower cap 1 % topical MOWEFR 07/27/17 [History Last Taken Unknown] guaifenesin 400 mg tablet 400 mg PO Q4H PRN Cough 07/27/17 [History Last Taken Unknown] sodium chloride 0.65 % nasal spray aerosol 2 spray intranasal BID 07/27/17 [History Last Taken Unknown] Lactobacillus rhamnosus GG 10 billion cell capsule (Culturelle) 1 cap PO BID #60 caps 01/05/18 [Rx Last Taken Unknown] risperidone 0.5 mg tablet 0.5 mg PO BID 01/25/18 [History Last Taken Unknown] risperidone 1 mg tablet 1 mg PO QHS 01/25/18 [History Last Taken Unknown] fluticasone propionate 50 mcg/actuation nasal spray,suspension 1 spray in tranasal DAILY #47.4 grams 03/12/18 [Rx Last Taken Unknown] azelaic acid 20 % topical cream (Azelex) 1 applic topical BID #30 grams 04/21/18 [Rx Last Taken Unknown] calcium polycarbophil 625 mg tablet (Fiber Laxative (calcium polycarbophil)) 625 mg PO DAILY 03/01/22 [History Last Taken Unknown] divalproex 500 mg tablet,extended release 24 hr 500 mg PO BID 03/01/22 [History Last Taken Unknown] doxycycline hyclate 50 mg tablet 50 mg PO DAILY 03/01/22 [History Last Taken Unknown] lansoprazole 15 mg capsule,delayed release 15 mg PO DAILY 03/01/22 [History Last Taken Unknown] tamsulosin 0.4 mg capsule 0.4 mg PO QHS 03/01/22 [History Last Taken Unknown] Allergy/AdvReac Type Severity Reaction Status Date / Time gluten AdvReac Upset Verified 03/01/22 12:02 Stomach Family History Mother Anxiety Thyroid disorder Uncle Anxiety Grandmother Depression High cholesterol Sister Epilepsy Grandfather Thyroid disorder Surgical History H/O ventricular septal defect repair History of sinus surgery History of tonsillectomy and adenoidectomy lymphctomy/bone marrow aspiration Social History Smoking Status: Never smoker alcohol intake: never substance use type: does not use what type of physical activity do you participate in: none ROS <SAHIL Huerta - Last Filed: 06/03/22 21:43> ROS ED Review of Systems ROS Unobtainable: due to mental condition Constitutional Constitutional ED: Denies chills, fever(s) or sweats ENT ENT ED: Reports nasal congestion and rhinorrhea Respiratory/Chest Respiratory/Chest: Denies cough, dyspnea, dyspnea on exertion, shortness of breath at rest, shortness of breath with exertion, sputum, stridor, tachypnea or wheezing Gastrointestinal Gastrointestinal: Denies abdominal pain, nausea or vomiting Genitourinary Genitourinary ED: Denies hematuria Musculoskeletal Musculoskeletal: Denies back pain, myalgias or neck pain Integumentary Denies abscess, Abrasions or rash Neurologic Neurologic: Denies weakness Allergic/Immunologic Allergic/Immunologic ED: Denies mouth swelling or tongue swelling EXAM <SAHIL Huerta - Last Filed: 06/03/22 21:43> Physical Exam Const Vital Signs: 06/03/22 18:04 06/03/22 18:06 Temperature 96.5 F L Temperature Source Temporal Pulse Rate 77 Respiratory Rate 15 Respiratory Effort Normal Non-Labored Respiratory Pattern Normal Blood Pressure 127/72 H Blood Pressure Mean 90 Pulse Ox 99 Oxygen Delivery Method Room Air Positive well nourished and well developed General Appearance ED: well developed and NAD HEENT Reports moist mucous membranes HEENT Narrative: No foreign body visualized in the oropharynx. Negative for trauma or tenderness Eyes PERRL and EOMs intact bilaterally Neck no lymphadenopathy and supple Chest Wall inspection of chest normal and palpation of chest normal Resp normal respiratory effort and clear to auscultation bilaterally Cardio regular rate, regular rhythm and no murmurs GI normal to inspection, nondistended, normoactive bowel sounds Palpation: soft; Negative for guarding Extremity normal to inspection General Extremety ED: Negative for edema or tenderness General Extremity: Negative for edema Neuro CN's II-XII intact bilaterally and no sensory deficits noted Sensorium / Orientation: alert Motor Exam: strength 5/5 throughout Skin no rashes or lesions noted, no wounds and skin turgor normal <Dr. Justin Franks, - Last Filed: 06/03/22 19:57> Physical Exam Const Vital Signs: 06/03/22 18:04 06/03/22 18:06 Temperature 96.5 F L Temperature Source Temporal Pulse Rate 77 Respiratory Rate 15 Respiratory Effort Normal Non-Labored Respiratory Pattern Normal Blood Pressure 127/72 H Blood Pressure Mean 90 Pulse Ox 99 Oxygen Delivery Method Room Air MDM <SAHIL Huerta - Last Filed: 06/03/22 21:43> [facility] MDM Narrative Medical decision making narrative: Upon initial examination patient was sitting comfortably in the bed in no acute distress. Patient's vital signs are within normal limits and have remained stable. Patient was able to comfortably drink a glass of water with the caregivers assistance. Chest x-ray did not show foreign body aspiration. I am comfortable with patient discharging home and caregiver is comfortable with plan. I have provided return instructions. Radiography Diagnostic Testing: Clinical Impression(s) from Imaging Studies Chest X-Ray 06/03/22 19:10 IMPRESSION: 1. No evidence of acute cardiopulmonary process Electronically Signed: Preet Sampson MD at 19:23 EST , I have reviewed chest x-ray and agree with findings. This has also been reviewed by attending ED physician. <Dr. Justin Franks, - Last Filed: 06/03/22 19:57> [facility] Radiography Diagnostic Testing: Clinical Impression(s) from Imaging Studies Chest X-Ray 06/03/22 19:10 IMPRESSION: 1. No evidence of acute cardiopulmonary process Electronically Signed: Preet Sampson MD at 19:23 EST , Treatment and Re-Evaluation Narrative: I have personally performed a face to face assessment of the patient and have reviewed the LESLIE Note. I performed a substantive portion of the visit including all aspects of the following. My merrill findings include: History: Patient presents with choking episode that occurred today. Patient was eating and had difficulty swallowing and was coughing. Patient is feeling better here in the emergency department. Patient has a history of Down syndrome and is a poor informant. Caregiver states patient has done this in the past. Exam: Vital signs are stable. Patient is afebrile. Patient is in no acute distress. Oral mucosa is pink and moist. Neck is supple. Trachea is midline. There is no JVD. Heart was regular rate and rhythm. Lungs are clear and equal bilaterally. Abdomen is soft. Bowel sounds are normal. There is no tenderness. Medical Decision Making: Portable 1 view chest x-ray was obtained. On my interpretation, lung moseley are clear. There is normal cardiac silhouette. Bony thorax is normal. There is no acute process noted. Radiologist also interpreted the x-ray and agrees. Patient is swallowing water here in the emergency department. Patient is not having any difficulty with this. Patient is not having any choking episodes here. Caregiver was advised to have the patient follow-up with his primary care physician in 5 to 7 days. Caregiver was instructed return if worse in any way. Caregiver understood and was agreeable with the plan. All questions were answered. Discharge Plan Triage Chief Complaint: Foreign Body ED Midlevel Provider: Sheila Skelton ED Provider: Justin Franks Dx/Rx/DC Orders Clinical Impression: Trisomy 21, Choking episode Instructions: ED Esophageal Foreign Body, Resolved Prescriptions: No Action cetirizine [All Day Allergy (cetirizine)] 10 mg tablet 10 mg PO QDAY fluocinolone and shower cap 0.01 % oil 1 % TOPICAL MOWEFR Label Comments: 3 TIMES A WEEK sodium chloride 0.65 % aerosol,spray 2 spray INTRANASAL BID ceramides 1,3,6-II [CeraVe] lotion 1 ea TOPICAL DAILY guaifenesin 400 mg tablet 400 mg PO Q4H PRN (Reason: Cough) calcium carbonate 500 mg calcium (1,250 mg) tablet,chewable 500 mg PO BID polyethylene glycol 3350 17 GM packet 17 gm PO DAILY levothyroxine 88 MCG tablet 88 mcg PO DAILY testosterone 2.5 GM gel in packet 2.5 gm TD DAILY risperidone 0.5 mg tablet 0.5 mg PO BID risperidone 1 mg tablet 1 mg PO QHS pediatric jahenuvr-qzkc-ove 1 EACH tablet,chewable 1 ea PO DAILY mirtazapine 45 MG tablet 45 mg PO QHS cholecalciferol (vitamin D3) 1,000 UNIT capsule 1,000 unit PO DAILY melatonin 5 MG tablet 10 mg PO QHS tamsulosin 0.4 mg Capsule 0.4 mg PO QHS divalproex 500 mg Tablet Extended Release 24 Hr 500 mg PO BID calcium polycarbophil [Fiber Laxative (ca polycarbo)] 625 mg Tablet 625 mg PO DAILY lansoprazole 15 mg Capsule,Delayed Release(Dr/Ec) 15 mg PO DAILY doxycycline hyclate 50 mg Tablet 50 mg PO DAILY Lactobacillus rhamnosus GG [Culturelle] 10 billion cell capsule 1 cap PO BID Qty: 60 2RF Rx Instructions: give with food (meal/snack) fluticasone propionate 50 mcg/actuation spray,suspension 1 spray INTRANASAL DAILY Qty: 47.4 1RF Azelex 20 % cream 1 applic TOPICAL BID Qty: 30 0RF Primary Care Provider: Honey Molina Referrals: Honey Molina MD [Primary Care Provider] - 5-7 Days Activity Restrictions/Additional Instructions: Please return if patient develops any changes to his breathing. Please monitor patient while eating. Disposition Disposition: Home, Self Care Discharge Date/Time: 06/03/22 20:00
--- NOTE | 2022-06-03 19:10 | RAD_ITS ---
INDICATION: possible foreign body EXAMINATION/TECHNIQUE: X-RAY - XR Chest 1 View COMPARISON: 03/01/2022 FINDINGS: LIFE-SUPPORT AND LINES: 1. No life-support noted. Surgical clips are present projecting over the upper mediastinum. HEART AND VESSELS: The cardiac silhouette, pulmonary vasculature have normal appearance. No evidence of congestive failure. LUNGS AND PLEURAL SPACES: Lungs are clear. No focal infiltrate, consolidation or effusions. No evidence of pneumothorax. No pulmonary mass is noted. MEDIASTINUM AND HILAR REGIONS: No masses adenopathy noted. No areas of calcification. Visualized upper airway is normal in position. BONY ELEMENTS: No acute bony changes noted. RAD/Chest 1 View (Portable) IMPRESSION: 1. No evidence of acute cardiopulmonary process Electronically Signed: Preet Sampson MD at 19:23 EST ,
== END 2022-06-03 20:00 | disposition home or self-care (01) ==
PROVIDERS: Emergency Provider Emergency Medicine; PCP Internal Medicine; Visit Provider Emergency Medicine
DX: Q90.9 Down syndrome, unspecified (principal); T17.928A Food in respiratory tract, part unspecified causing other injury, initial encounter; X58.XXXA Exposure to other specified factors, initial encounter
CPT/HCPCS: 71045; 99284